=== PATIENT | female | born 1985 | race African-American/Black ===

== ENCOUNTER 2018-10-28 09:22 | Emergency (ER) | payer BC ==
[~2018-10-28] VITALS: Ht 172.7 cm; Wt 55.8 kg
[2018-10-28 09:20] VITALS: BP 117/78
[~2018-10-28 09:22] MED LIST: NKM
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
[2018-10-28] MEDS ORDERED: Methocarbamol 750mg tab ORAL ONE (10:00)
[2018-10-28] MEDS ORDERED: ROBAXIN-750750 MG PO (10:17)
[2018-10-28] MEDS ORDERED: IBUPROFEN600 MG ORAL (10:17)
[2018-10-28 10:56] VITALS: BP 112/65
== END 2018-10-28 10:58 | disposition home or self-care (01) ==
LOC: EDBD 09:22 → EMR 09:58
DX: S13.9XXA Sprain of joints and ligaments of unspecified parts of neck, initial encounter (principal); V43.52XA Car driver injured in collision with other type car in traffic accident, initial encounter; Y92.410 Unspecified street and highway as the place of occurrence of the external cause
CPT/HCPCS: 99283